=== PATIENT | male | born 1980 | race Caucasian/White ===

== ENCOUNTER 2017-05-28 10:52 | Emergency (ER) | payer MEDICAID ==
[2017-05-28 11:02] VITALS: RESP 16
--- NOTE | 2017-05-28 11:04 | CPEKG ---
Heart Rate: 51 RR Interval: 1176 P-R Interval: 164 QRSD Interval: 90 QT Interval: 408 QTC Interval: 376 P [place]: 27 QRS [place]: 79 T Wave [place]: 37 EKG Severity - NORMAL ECG - EKG Impression: SINUS RHYTHM EKG Impression: ST ELEV, PROBABLE NORMAL EARLY REPOL PATTERN Electronically Signed By: Vijay Finney 29-May-2017 15:01:57
[2017-05-28] MEDS ORDERED: ASPIRIN 81 MG CHEWABLE TAB PO ONE (11:05)
[2017-05-28 11:36] LABS: % IMMATURE GRANULYOCYTES 0.1 % (0.0-1.1); ABSOLUTE IMMATURE GRANULOCYTES 0.01 10^3/uL (0.00-0.10); ADD DIFF? NO; ADD MORPH? NO; ADD SCAN? NO; ATYPICAL LYMPHOCYTE FLAG 10 (0-99); FRAGMENT RBC FLAG 0 (0-99); HEMOGLOBIN 15.1 g/dL (13.7-17.5); LEFT SHIFT FLG 0 (0-99); LIPEMIA HEMOLYSIS FLAG 90 (0-99); MEAN CELL VOLUME 91.7 fL (81.5-99.8); MEAN PLATELET VOLUME 9.4 fL (8.7-11.7); PLATELET CLUMPS FLAG 0 (0-99); PLATELET COUNT 247 10^3/uL (150-400); RED BLOOD CELL COUNT 4.58 10^6/uL (4.40-6.38); RED CELL DISTRIBUTION WIDTH 12.5 % (11.5-15.2)
[2017-05-28 11:57] LABS: TROPONIN I < 0.012 ng/mL (0-0.034)
[2017-05-28 12:00] LABS: ANION GAP 11 mEq/L (8-16); CALCIUM 9.2 mg/dL (8.5-10.4); CARBON DIOXIDE 23 mEq/l (22-31); CHLORIDE 105 mEq/L (97-110); CREATININE 0.9 mg/dL (0.7-1.3); GLOMERULAR FILTRATION RATE > 60; GLUCOSE 99 mg/dL (70-100); POTASSIUM 4.3 mEq/L (3.5-5.2); SODIUM 139 mEq/L (134-144)
[2017-05-28 13:22] VITALS: PULSE 45
--- NOTE | 2017-05-28 13:28 | EDPHY ---
H & P Stated Complaint: CP FOR APPROX 2 WEEKS. Time Seen by Provider: 05/28/17 10:55 HPI/ROS: CHIEF COMPLAINT: Chest pain History by patient HISTORY OF PRESENT ILLNESS: 36-year-old man presents complaining of more than 1 week of chest wall pain which he describes as severe point tenderness near his sternum both on the left and right side and a feeling of popping when he changes position particularly going from lying to standing. He has taken ibuprofen for this with minimal relief. He denies any shortness of breath. There is no associated nausea or vomiting. Denies any fever or chills but has noticed he has been sweaty at night. He has had no recent flu or URI. Pain is worse when he changes position or moves around but it has not worsened any particular position. He has never had this before. He denies any trauma. 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 He is otherwise healthy. He does not smoke cigarettes. There is no family history of cardiac disease or sudden . He occasionally smokes or uses as well marijuana. He has not used cocaine or methamphetamines in over a year. REVIEW OF SYSTEMS: As in HPI, and all other systems reviewed and are negative Source: Patient - Personal History Current Tetanus Diphtheria and Acellular Pertussis (TDAP): Yes Tetanus Vaccine Date: - Medical/Surgical History Hx Asthma: No Hx Chronic Respiratory Disease: No Hx Diabetes: No Hx Cardiac Disease: No Hx Renal Disease: No Hx Cirrhosis: No Hx Alcoholism: No Hx HIV/AIDS: No Hx Splenectomy or Spleen Trauma: No Other PMH: DEPRESSION - Social History Smoking Status: Current some day smoker - Physical Exam Exam: General Appearance: Alert, well-appearing, fit. Eyes: Pupils equal and round no pallor or injection. ENT, Mouth: Mucous membranes moist. Respiratory: Normal, effort, lungs are clear to auscultation. No wheezes, rales or rhonchi. Chest: Positive point tenderness left mid sternal border and right upper sternal border that reproduces the patient's symptoms Cardiovascular: Regular rate and rhythm. S1, S2, no murmurs, gallops, rubs appreciated Gastrointestinal: Abdomen is soft and nontender, no masses, bowel sounds normal. Back: No CVA tenderness, no bony tenderness Neurological: Awake, alert and oriented x 3, no pronator drift, normal gait, no pronator drift Skin: Warm and dry, no rashes. Musculoskeletal: Neck is supple nontender. No deformities. Extremitie:s full range of motion, no edema, DP pulses are 2+ and equal bilaterally Psychiatric: Patient has normal affect, there is no agitation. Constitutional: Initial Vital Signs Temperature (C) 36.7 C 05/28/17 11:00 Heart Rate 56 L 05/28/17 11:00 Respiratory Rate 16 05/28/17 11:00 Blood Pressure 119/70 05/28/17 11:00 O2 Sat (%) 95 05/28/17 11:00 O2 Delivery Mode Room Air Allergies/Adverse Reactions: No Known Allergies Allergy (Verified 05/28/17 11:04) Home Medications: Medication Instructions Recorded Naproxen 500 mg PO BID PRN #20 tablet 05/28/17 Medical Decision Making - Diagnostics Imaging Results: Imaging Impressions Chest X-Ray 05/28/17 11:34 Impression: Normal. No acute process. ED Course/Re-evaluation: 36-year-old man presents complaining of chest wall pain and popping particularly with movement and chest wall tenderness. ECG showed normal sinus rhythm at a rate of 51 with early repol pattern. The patient's symptoms have been ongoing now for more than a week and a troponin was negative. The rest of his labs are unremarkable. Chest x-ray was unremarkable.History is not consistent with cardiac syndrome exam is consistent with chest wall pain. Will give the patient a trial of anti-inflammatories and have a follow up with his primary care physician. Patient is also complaining of ongoing insomnia for which I am recommending cognitive behavioral therapy. - Data Points Laboratory Results: Laboratory Results 05/28/17 11:15 05/28/17 11:15 05/28/17 05/28/17 11:15 11:15 WBC 6.67 10^3/uL 10^3/uL (3.80-9.50) RBC 4.58 10^6/uL 10^6/uL (4.40-6.38) Hgb 15.1 g/dL g/dL (13.7-17.5) Hct 42.0 % % (40.0-51.0) MCV 91.7 fL fL (81.5-99.8) MCH 33.0 pg pg (27.9-34.1) MCHC 36.0 g/dL g/dL (32.4-36.7) RDW 12.5 % % (11.5-15.2) Plt Count 247 10^3/uL 10^3/uL (150-400) MPV 9.4 fL fL (8.7-11.7) Neut % (Auto) 51.4 % % (39.3-74.2) Lymph % (Auto) 38.2 % % (15.0-45.0) [place] % (Auto) 8.2 % % (4.5-13.0) Eos % (Auto) 1.2 % % (0.6-7.6) Baso % (Auto) 0.9 % % (0.3-1.7) Nucleat RBC Rel Count 0.0 % % (0.0-0.2) Absolute Neuts (auto) 3.42 10^3/uL 10^3/uL (1.70-6.50) Absolute Lymphs (auto) 2.55 10^3/uL 10^3/uL (1.00-3.00) Absolute Monos (auto) 0.55 10^3/uL 10^3/uL (0.30-0.80) Absolute Eos (auto) 0.08 10^3/uL 10^3/uL (0.03-0.40) Absolute Basos (auto) 0.06 10^3/uL 10^3/uL (0.02-0.10) Absolute Nucleated RBC 0.00 10^3/uL 10^3/uL (0-0.01) Immature Gran % 0.1 % % (0.0-1.1) Immature Gran # 0.01 10^3/uL 10^3/uL (0.00-0.10) Sodium 139 mEq/L mEq/L (134-144) Potassium 4.3 mEq/L mEq/L (3.5-5.2) Chloride 105 mEq/L mEq/L (97-110) Carbon Dioxide 23 mEq/l mEq/l (22-31) Anion Gap 11 mEq/L mEq/L (8-16) BUN 16 mg/dL mg/dL (7-23) Creatinine 0.9 mg/dL mg/dL (0.7-1.3) Estimated GFR > 60 Glucose 99 mg/dL mg/dL (70-100) Calcium 9.2 mg/dL mg/dL (8.5-10.4) Troponin I < 0.012 ng/mL ng/mL (0-0.034) Medications Given: Discontinued Medications Aspirin (Aspirin) 324 mg PO EDNOW ONE Stop: 05/28/17 11:06 Last Admin: 05/28/17 11:08 Dose: 324 mg Departure - Departure Disposition: Home, Routine, Self-Care Clinical Impression: Chest wall pain Condition: Good Instructions: Chest Wall Pain (ED) Additional Instructions: You were seen by Dr. Char Rosas today. Take Naprosyn twice a day for the pain in your chest. Talked to her primary care physician about cognitive behavioral therapy for your insomnia. Also discussed with her your chest wall pain if it does not resolve in the next week or so. Return for any worsening or new concerns. Referrals: MD MALIA [Other] - As per Instructions Stand Alone Forms: Work Limited Duty, Work Excuse Prescriptions: Naproxen 500 mg PO BID PRN #20 tablet PRN Reason: pain
[2017-05-28 13:40] VITALS: BP 112/76; TEMP 97.5; O2SAT 96
== END 2017-05-28 13:35 | disposition home or self-care (01) ==
LOC: CED 10:52
DX: R07.89 Other chest pain (principal); F17.200 Nicotine dependence, unspecified, uncomplicated
CPT/HCPCS: 71020-PO; 80048-PO; 84484-PO; 85025-PO